=== PATIENT | male | born 1960 | race Caucasian/White ===

== ENCOUNTER → 2018-06-26 | Outpatient (CLI) | payer OTHER ==
[2018-06-26 11:34] LABS: ANION GAP 13 (8-16); BLOOD UREA NITROGEN 10 mg/dl (7-20); CARBON DIOXIDE 28 mmol/L (21-31); CHLORIDE 98 mmol/L (97-110); CREATININE 1.05 mg/dl (0.61-1.24); GLUCOSE 123 mg/dl (70-220); POTASSIUM 3.7 mmol/L (3.5-5.1); SODIUM 135 mmol/L (135-144)
[2018-06-26] MEDS: SOD CHLORIDE 0.9% 100 ML (12:00)
[2018-06-26] MEDS: IOHEXOL 100 ML (12:05)
[2018-06-26] MEDS: NITROGLYCERIN AEROSOL (4.9 GM) (12:18)
== END | disposition home or self-care (01) ==
LOC: C/S 09:33
DX: R94.39 Abnormal result of other cardiovascular function study (principal)
CPT/HCPCS: 75571; 75574; 80048